=== PATIENT | female | born 1995 | race Caucasian/White ===

== ENCOUNTER 2021-10-24 05:16 | Inpatient (IN) | payer BC, OTHER ==
[2021-10-24] MEDS ORDERED: TERBUTALINE 1 MG/ML VIAL SQ PRN (05:28)
[2021-10-24] MEDS ORDERED: LIDOCAINE 0.5% (PF) 5 MG/ML (50 ML SDV) SQ PRN (05:28)
[2021-10-24] MEDS ORDERED: CARBOPROST TROMETHAMINE 250 MCG/ML 1 ML AMP IM PRN (05:28)
[2021-10-24] MEDS ORDERED: METHYLERGONOVINE 0.2 MG/ML 1 ML AMP IM PRN (05:28)
[2021-10-24] MEDS ORDERED: OXYTOCIN 10 UNIT/ML 1 ML VIAL IM PRN (05:28)
[2021-10-24] MEDS ORDERED: OXYTOCIN 30 UNITS/500 ML NS 30 UNIT in SALINE 1 500ML.BAG IV SCH (05:30)
[2021-10-24] MEDS: LACTATED RINGERS 1,000 ML IV SCH ×2 (05:35→14:56)
[2021-10-24 06:05] LABS: Basophils % (A) 0 %; Eosinophils # (A) 0.3 k/uL (0-0.7); Eosinophils % (A) 2 %; HCT 32.7 % (34.0-46.0); HGB 10.8 gm/dL (11.4-16.0); Hypochromasia Slight; Lymphocytes % (A) 15 %; MCH 28.1 pg (25.0-35.0); MCV 85.1 fL (80.0-100.0); Mean Platelet Volume 10.2; Monocytes # (A) 0.5 k/uL (0-1.0); Monocytes % (A) 4 %; Neutrophils # (A) 10.4 k/uL (1.3-7.7); Neutrophils % (A) 77 %; Platelet Count 300 k/uL (150-450); RBC 3.84 m/uL (3.80-5.40); RDW 14.1 % (11.5-15.5); WBC 13.4 k/uL (3.8-10.6)
[2021-10-24] MEDS ORDERED: BUPIVACAINE (PF) 0.25% 30 ML VIAL ONE (07:00)
[2021-10-24] MEDS ORDERED: SODIUM CHLORIDE 0.9% 100 ML BAG ONE (07:00)
[2021-10-24] MEDS ORDERED: fentaNYL (PF) 50 MCG/ML 5 ML AMP ONE (07:00)
--- NOTE | 2021-10-24 07:32 | P.HPOB ---
History of Present Illness H&P Date: 10/24/21 Chief Complaint: Strong regular uterine contractions This is a 26 1 para 0 EDC 10/30/2021 at 39 and one sevenths weeks' gestation who was initially scheduled for induction but presented in active spontaneous labor from home. She denied fluid leakage or vaginal bleeding. Fetus is been active throughout the . Past medical history is significant for anxiety, depression, and asthma. Current medications albuterol inhaler as needed, Lexapro 10 mg daily, vitamin daily. ALLERGIES none known. Past surgical history significant for endoscopy 2010. Family history significant for stroke, rheumatoid arthritis, mental issues. Social history patient works at [employer], she is to her [employer], she denies tobacco alcohol or drug use. history is significant for blood type A+, rubella status immune. Pap smear, VDRL, urine culture, hepatitis B surface antigen, HIV testing, group B strep cultures all negative. One-hour Glucola 152, 3 hour GTT within normal limits. On exam patient is 5 foot 5 inches, 224 pounds, blood pressure 133/87 with a pulse of 91 on admission. General physical exam is within normal limits. Chest is clear to auscultation in all pickering. heart rate is consistent with reactive NST. Cervix is 6-7 cm dilated, 80% effaced, -2 station, vertex presentation. Artificial amniorrhexis reveals meconium-stained fluid. Impression: 39 and one sevenths weeks intrauterine , here in active labor, meconium-stained fluid, all signs otherwise reassuring. Plan: Oxytocin augmentation as needed. Epidural has been placed per patient request. Continue close maternal and surveillance. Anticipate normal spontaneous vaginal delivery. Review of Systems Constitutional: Reports as per HPI Past Medical History Past Medical History: Asthma History of Any Multi-Drug Resistant Organisms: None Reported Past Surgical History: No Surgical Hx Reported Past Anesthesia/Blood Transfusion Reactions: No Reported Reaction Past Psychological History: Anxiety, Depression Smoking Status: Never smoker Past Alcohol Use History: None Reported Past Drug Use History: None Reported - Past Family History Mother Family Medical History: Asthma Additional Family Medical History / Comment(s): Bipolar, depression Father Family Medical History: COPD, Rheumatoid Arthritis (RA) Sister(s) Additional Family Medical History / Comment(s): Stroke 2020 Medications and Allergies Home Medications Medication Instructions Recorded Confirmed Type Aspirin [Adult Low Dose Aspirin EC] 81 mg PO DAILY 10/24/21 10/24/21 History Escitalopram [Lexapro] 10 mg PO DAILY 10/24/21 10/24/21 History Vit No.179/Iron/Folic 1 tablet PO DAILY 10/24/21 10/24/21 History [ Tablet] Allergies Allergy/AdvReac Type Severity Reaction Status Date / Time No Known Allergies Allergy Verified 10/24/21 05:25 Exam Vital Signs Temp Pulse Resp BP Pulse Ox 10/24/21 05:51 96.8 F L 81 18 133/87 98 Intake and Output 10/23/21 10/24/21 10/24/21 22:59 06:59 14:59 Intake Total 1000 Balance 1000 Intake: IV 1000 Other: # Voids 1 Weight 101.605 kg See dictation under HPI please Results Result Diagrams: 10/24/21 05:30 Abnormal Lab Results - Last 24 Hours (Table) 10/24/21 Range/Units 05:30 WBC 13.4 H (3.8-10.6) k/uL Hgb 10.8 L (11.4-16.0) gm/dL Hct 32.7 L (34.0-46.0) % Neutrophils # 10.4 H (1.3-7.7) k/uL Assessment and Plan Assessment: 39 and one sevenths weeks intrauterine , here in active spontaneous labor, meconium-stained fluid, otherwise all signs reassuring. Plan: Continue close maternal and surveillance. Epidural has been placed per patient's request. Anticipate normal spontaneous vaginal delivery. Time with Patient: Less than 30
[2021-10-24] MEDS ORDERED: diphenhydrAMINE ELIXIR 25 MG/10 ML CUP PO PRN (11:52)
[2021-10-24] MEDS ORDERED: SIMETHICONE 80 MG CHEWABLE PO PRN (11:52)
[2021-10-24] MEDS ORDERED: diphenhydrAMINE 50 MG/ML 1 ML VIAL IVP PRN ×2 (11:52)
[2021-10-24] MEDS ORDERED: ZOLPIDEM 5 MG TAB PO PRN (11:52)
[2021-10-24] MEDS ORDERED: LANOLIN CREAM 5 GM TUBE TOPICAL PRN (11:52)
[2021-10-24] MEDS ORDERED: BENZOCAINE/MENTHOL SPRAY 1 GM/SPRAY AEROSOL TOPICAL PRN (11:52)
[2021-10-24] MEDS ORDERED: diphenhydrAMINE 25 MG CAP PO PRN (11:52)
[2021-10-24] MEDS ORDERED: ACETAMINOPHEN TAB 325 MG TAB PO PRN (11:52)
[2021-10-24] MEDS ORDERED: diphenhydrAMINE 50 MG CAP PO PRN (11:52)
[2021-10-24] MEDS ORDERED: HYDROCORTISONE 2.5% RECTAL CREAM 30 GM TUBE RECTAL PRN (11:52)
--- NOTE | 2021-10-24 11:52 | P.PROBDLV ---
Vaginal Delivery Note - . Vaginal Delivery Note: This is a 26-year-old female 1 para 0 EDC 10/30/2021 at 39 and one sevenths weeks' gestation who was initially scheduled for induction, but presented in the order editor hours in active labor. Fetus is been active throughout the . Blood type A+, rubella status immune, group B strep cultures negative. Please see my dictated history and physical for details. Artificial amniorrhexis revealed meconium-stained fluid. Epidural was placed per her request. She progressed well and became completely dilated at 0958 hours. Patient had no urge to push, epidural was discontinued and she was allowed to "labor down". Patient began the second stage of labor and after 25 minutes of pushing the perineal body was prepped and draped in the usual sterile fashion. Infant's head delivered occiput anterior and he restituted accordingly. There was a nuchal cord 1 that was reduced. The right or anterior shoulder was gently delivered from underneath the pubic symphysis at which time the oropharynx, nasopharynx, and external nares were thoroughly suctioned with a bulb suction. Patient was officially delivered of a liveborn male at 1135 hours. Umbilical cord was doubly clamped and ligated, he was handed to waiting dining room captain for evaluation where scores of 6 and 8 at one and 5 minutes respectively are given. Placenta delivered spontaneously, it was inspected and noted to be intact with trivascular cord at 1137 hours. Uterus is massaged. Careful inspection of the cervix, vagina, perineum, periurethral, and perirectal areas revealed a small midline first-degree laceration easily repaired with a single [id number] suture of 3-0 repeat. Reapproximation is excellent. Fundus is firm and in the midline, symmetric and 18 week size upon completion of delivery. All sponge needle and instrument counts are correct. Total estimated blood loss 250 mL's. Patient and her family are allowed to begin the bonding experience in the LDR.
[2021-10-24] MEDS: IBUPROFEN 600 MG TAB PO SCH ×3 (12:23→23:07)
[2021-10-24] MEDS: SENNOSIDES-DOCUSATE SODIUM 1 EACH TAB PO SCH (19:49)
[2021-10-24 20:11] VITALS: RESP 16
--- NOTE | 2021-10-25 07:44 | P.PN ---
Subjective Progress Note Date: 10/25/21 Principal diagnosis: day #1 Tired. Minimal to moderate lochia rubra. Anxious about the . No other complaints Objective - Vital Signs Vital signs: Vital Signs Temp 97.7 F 10/25/21 04:00 Pulse 73 10/25/21 04:00 Resp 16 10/25/21 04:00 BP 122/83 10/25/21 04:00 Pulse Ox 99 10/25/21 04:00 FiO2 Intake & Output 10/24/21 10/25/21 10/25/21 18:59 06:59 18:59 Intake Total 175.4 Output Total 640 Balance -464.6 Intake: Intake, IV Titration 175.4 Amount Oxytocin 30 Units/500 ml 175.4 Ns 30 unit In Saline 1 500ml.bag @ Per Protocol IV .Q0M [place] Rx#:[id number] Output: Estimated Blood Loss 500 Output, Quantitative 140 Blood Loss Other: # Voids 1 1 - Constitutional General appearance: Present: average body habitus, cooperative - EENT Eyes: Present: PERRLA ENT: Present: hearing grossly normal - Respiratory Respiratory: bilateral: CTA - Cardiovascular Rhythm: regular - Gastrointestinal General gastrointestinal: Present: normal bowel sounds - Integumentary Integumentary: Present: normal - Neurologic Neurologic: Present: CNII-XII intact - Musculoskeletal Musculoskeletal: Present: gait normal, strength equal bilaterally - Psychiatric Psychiatric: Present: A&O x's 3, appropriate affect, intact judgment & insight - Labs CBC & Chem 7: 10/24/21 05:30 Assessment and Plan Assessment: Doing well day #1 Plan: Continue care. Likely discharge home tomorrow. Time with Patient: Less than 30
[2021-10-25] MEDS: IBUPROFEN 600 MG TAB PO SCH ×2 (09:46→13:00)
[2021-10-25] MEDS: SENNOSIDES-DOCUSATE SODIUM 1 EACH TAB PO SCH ×2 (10:30→19:53)
[2021-10-26 00:57] VITALS: PULSE 95
[2021-10-26] MEDS: IBUPROFEN 600 MG TAB PO SCH ×2 (00:59→09:11)
[2021-10-26 07:44] VITALS: BP 137/83; TEMP 98
--- NOTE | 2021-10-26 08:29 | P.DS ---
Providers Date of admission: 10/24/21 05:16 Expected date of discharge: 10/26/21 Attending physician: Delores Sheehan Primary care physician: Vitaly Rivera [facility] Course: This is a 26-year-old female 1 para 0 EDC 10/30/2021 at 39 and one sevenths weeks' gestation who presented in active spontaneous labor. is remarkable for to be strep cultures negative, rubella status immune. Please see dictated history and physical for details. Artificial amniorrhexis revealed thin meconium-stained fluid. Epidural was placed per her request. She went on to deliver vaginally a liveborn male infant with scores of 6 and 8 at one and 5 minutes respectively. There was a nuchal cord 1 that was easily reduced. Estimated blood loss 250 mL's. First- degree perineal laceration noted and repaired. weighed 3750 g or 8 lbs. 3 oz. Please see my dictated delivery note for details. This morning the patient is doing well. She is voiding, ambulating, passing flatus without difficulty. Vital signs are stable and she is afebrile. Fundus is firm and in the midline, symmetric and 18 week size. Extremities are negative for edema. Chest is clear in all pickering. is doing well, circumcision has been performed. Patient is judged to be in very good condition for discharge home. She will follow-up with me in the office in 6 weeks. I reminded her no intercourse, tampons or douching. She'll use [id number] Advil or Aleve, or Motrin as needed for pain. She will call with any fevers shakes or chills, foul smelling or copious lochia, with the passage of large blood clots, with any pain not alleviated by [id number] products, or indeed with any concerns. Assessment: Doing well day number two Patient Condition at Discharge: Good Plan - Discharge Summary Discharge Rx Participant: No New Discharge Prescriptions: No Action Vit No.179/Iron/Folic [ Tablet] 1 tablet PO DAILY Aspirin [Adult Low Dose Aspirin EC] 81 mg PO DAILY Escitalopram [Lexapro] 10 mg PO DAILY Discharge Medication List Aspirin [Adult Low Dose Aspirin EC] 81 mg PO DAILY 10/24/21 [History] Escitalopram [Lexapro] 10 mg PO DAILY 08/30/22 [History] Vit No.179/Iron/Folic [ Tablet] 1 tablet PO DAILY 10/24/21 [History] Follow up Appointment(s)/Referral(s): Delores Sheehan MD [STAFF PHYSICIAN] - 6 Weeks Discharge Disposition: HOME SELF-CARE
[2021-10-26] MEDS: SENNOSIDES-DOCUSATE SODIUM 1 EACH TAB PO SCH (09:11)
== END 2021-10-26 10:50 | disposition home or self-care (01) | DRG 807 ==
LOC: 4FBP 05:16
PROVIDERS: ADMIT Obstetrics & Gynecology; ATTEND Obstetrics & Gynecology
PROC: 10E0XZZ Delivery of Products of Conception, External Approach (ICD-10-PCS; principal; 2021-10-24)
PROC: 10907ZC Drainage of Amniotic Fluid, Therapeutic from Products of Conception, Via Natural or Artificial Opening (ICD-10-PCS; 2021-10-24)
PROC: 0HQ9XZZ Repair Perineum Skin, External Approach (ICD-10-PCS; 2021-10-24)
PROC: 4A0HXCZ Measurement of Products of Conception, Cardiac Rate, External Approach (ICD-10-PCS; 2021-10-24)
PROC: 3E033VJ Introduction of Other Hormone into Peripheral Vein, Percutaneous Approach (ICD-10-PCS; 2021-10-24)
DX: O69.81X0 Labor and delivery complicated by cord around neck, without compression, not applicable or unspecified (principal); Z37.0 Single live birth; O70.0 First degree perineal laceration during delivery; O99.344 Other mental disorders complicating childbirth; O77.0 Labor and delivery complicated by meconium in amniotic fluid; F41.8 Other specified anxiety disorders; O99.52 Diseases of the respiratory system complicating childbirth; J45.909 Unspecified asthma, uncomplicated; Z79.82 Long term (current) use of aspirin; Z79.899 Other long term (current) drug therapy
CPT/HCPCS: 85025; 86850; 86900; 86901